=== PATIENT | male | born 1990 | race Caucasian/White ===

== ENCOUNTER 2017-08-29 04:31 | Emergency (ER) | payer OTHER ==
[~2017-08-29] VITALS: Ht 167.6 cm; Wt 84.0 kg
[2017-08-29 04:34] VITALS: BP 112/66; PULSE 108; RESP 20; TEMP 98; O2SAT 95
[2017-08-29] MEDS ORDERED: GABA300C5 PO (04:44)
[2017-08-29] MEDS ORDERED: [UNRECOGNIZED DRUG - CODE] PO (04:44)
[2017-08-29] MEDS ORDERED: BACL10TA PO (04:44)
[2017-08-29] MEDS ORDERED: SODIUM CHLOR 0.9% 1000 ML INJ 1,000 ML IV ONE (04:51)
--- NOTE | 2017-08-29 04:56 | PD ---
HPI Chief Complaint: Headache Time Seen by Provider: 04:51 Travel History International Travel<30 days: No Contact w/Intl Traveler<30days: No Traveled to known affect area: No History of Present Illness HPI 26-year-old male patient with history of migraine headaches, bulging disks in his neck, currently being evaluated by pain management, presents to the ER today because he has been having 1 month history of headaches which worsened tonight as he was being questioned by PD. He states that he is currently having a 10 out of 10 headache that started around 11 PM. He has been drinking tonight. He has been nauseous and throwing up and is having double vision which is not unusual for his headaches. He also complains of subjective fevers although this is not unusual for his headaches. Modifying Factors: None Associated Signs & Symptoms: Headache, double vision, nausea and vomiting Risk Factors: Headaches for the last month PFSH Past Medical History Medical other: Yes (back pain) Immunizations Current: No Tetanus Vaccination: < 5 Years Influenza Vaccination: No ?: Not Past Surgical History Surgical History: No Previous Surgery Social History Alcohol Use: Yes (weekly) Tobacco Use: Yes Allergies-Medications (Allergen,Severity, Reaction): Coded Allergies: Sulfa (Sulfonamide Antibiotics) (Verified Allergy, Severe, 08/29/17) buprenorphine (Verified Allergy, Severe, 08/29/17) Reported Meds & Prescriptions Reported Meds & Active Scripts Active Reported Nucynta (Tapentadol) 100 Mg Tab 200 Mg PO TID NEB PRN Baclofen 10 Mg Tab 10 Mg PO TID Gabapentin 300 Mg Cap 300 Mg PO TID Review of Systems Except as stated in HPI: all other systems reviewed are Neg Physical Exam Narrative GENERAL: Well-developed young white male patient currently in moderate distress. Awake and oriented 3. SKIN: Focused skin assessment warm/dry. HEAD: Atraumatic. Normocephalic. EYES: Pupils equal and round. No scleral icterus. No injection or drainage. ENT: No nasal bleeding or discharge. Mucous membranes pink and moist. NECK: Trachea midline. No JVD. Supple. CARDIOVASCULAR: Regular rate and rhythm. No murmur appreciated. RESPIRATORY: No accessory muscle use. Clear to auscultation. Breath sounds equal bilaterally. GASTROINTESTINAL: Abdomen soft, non-tender, nondistended. Hepatic and splenic margins not palpable. MUSCULOSKELETAL: No obvious deformities. No clubbing. No cyanosis. No edema. NEUROLOGICAL: Awake and alert. No obvious cranial nerve deficits. Motor grossly within normal limits. Normal speech. PSYCHIATRIC: Appropriate mood and affect; insight and judgment normal. Data Data Last Documented VS Vital Signs Date Time Temp Pulse Resp B/P (MAP) Pulse Ox O2 Delivery O2 Flow Rate FiO2 08/29/17 05:07 99 08/29/17 04:42 Room Air 08/29/17 04:34 98.0 108 20 112/66 (81) Orders Orders Complete Blood Count With Diff (08/29/17 04:51) Comprehensive Metabolic Panel (08/29/17 04:51) [place] Sedimentation Rate (08/29/17 04:51) C-Reactive Protein (Crp) (08/29/17 04:51) Ct Brain W/O Iv Contrast(Rout) (08/29/17 04:51) Ecg Monitoring (08/29/17 04:51) Iv Access Insert/Monitor (08/29/17 04:51) Oximetry (08/29/17 04:51) Sodium Chloride 0.9% Flush (Ns Flush) (08/29/17 05:00) Diphenhydramine Inj (Benadryl Inj) (08/29/17 05:00) Metoclopramide Inj (Reglan Inj) (08/29/17 05:00) Sodium Chlor 0.9% 1000 Ml Inj (Ns 1000 M (08/29/17 04:51) Vjdl-Gnpjw-Unom 325-50-40 Mg (Fioricet 3 (08/29/17 05:00) Urinalysis - C+S If Indicated (08/29/17 04:58) Drug Screen, Random Urine (08/29/17 04:58) Alcohol (Ethanol) (08/29/17 04:51) Ed Discharge Order (08/29/17 05:50) Labs Laboratory Tests Test 08/29/17 05:03 Urine Color STRAW Urine Turbidity CLEAR Urine pH 6.0 Urine Specific [place] 1.006 Urine Protein NEG mg/dL Urine Glucose (UA) NEG mg/dL Urine Ketones NEG mg/dL Urine Occult Blood NEG Urine Nitrite NEG Urine Bilirubin NEG Urine Leukocyte Esterase NEG Urine RBC 0-2 /hpf Urine WBC 0-2 /hpf Urine Squamous Epithelial Cells 0-5 /hpf Urine Bacteria NONE /hpf Microscopic Urinalysis Comment CULT NOT INDICATED Urine Opiates Screen NEG Urine Barbiturates Screen NEG Urine Amphetamines Screen NEG Urine Benzodiazepines Screen NEG Urine Cocaine Screen NEG Urine Cannabinoids Screen NEG MDM Medical Decision Making Medical Screen Exam Complete: Yes Emergency Medical Condition: Yes Medical Record Reviewed: Yes Interpretation(s) Laboratory Tests Test 08/29/17 05:03 Last [address] 08/29/17 0451 Signed Impressions: Service Date/Time: Tuesday, August 29, 2017 05:06 - CONCLUSION: Negative examination. Henry Hussein MD Differential Diagnosis Headache: Migraine headache versus malingering versus dehydration versus metabolic issues Narrative Course CT the brain did not show any signs of acute intracranial processes. UA was negative for any urine toxicology screen was unremarkable. Patient was given IV fluids, Reglan, and Fioricet in the ER. Vital signs are stable. At this point, I have discussed the findings with the patient and I wanted to do blood work but the patient is refusing blood work. He states he already knows was going on, has had extensive workup including MRIs for this issue, has a neurologist who he had seen for this issue, is currently seeing pain management. He is refusing to get blood work done. At this point, I have told him that I would be unable to diagnose him any further, cannot rule out any underlying metabolic issues, infections, or other acute processes. Patient states understanding, states that this is the same thing he has had and is currently being worked up on. My plan at this point would be to release him with follow-up to his physicians. Return for any worsening in symptoms as necessary. Diagnosis Primary Impression: Headache Disposition: 01 DISCHARGE HOME Condition: Stable Dereje Ortega MD Aug 29, 2017 04:56
[2017-08-29] MEDS ORDERED: SODIUM CHLORIDE 0.9% FLUSH 10 ML FLUSH IVF PRN (05:00)
[2017-08-29] MEDS ORDERED: ACETAMIN 325 MG/BUTALBITAL 50 MG/CAFFEINE 40 MG TAB PO ONE (05:00)
[2017-08-29] MEDS ORDERED: METOCLOPRAMIDE HCL 10 MG/2 ML VIAL IVP ONE (05:00)
[2017-08-29] MEDS ORDERED: diphenhydrAMINE HCL 50 MG/ML VIAL IVP ONE (05:00)
[2017-08-29 05:07] VITALS: O2SAT 99
[2017-08-29 05:12] LABS: BILIRUBIN, URINE NEG (NEG); BLOOD, URINE NEG (NEG); GLUCOSE,URINE NEG (NEG); KETONE, URINE NEG (NEG); NITRITE,URINE NEG (NEG); URINE LEUKOCYTE ESTERASE NEG (NEG)
[2017-08-29 05:18] LABS: URINE COLOR STRAW (YELLW/STRAW)
[2017-08-29 05:19] LABS: RBC, URINE 0-2 /hpf (0-3); SQUAMOUS EPITHELIAL CELL URINE 0-5 /hpf (0-5); WBC, URINE 0-2 /hpf (0-5)
--- NOTE | 2017-08-29 05:23 | RADRPT ---
EXAM DATE/TIME: 08/29/2017 05:06 [facility] COMPARISON: No previous studies available for comparison. INDICATIONS : Headache X 4 hours RADIATION DOSE: 60.16 CTDIvol (mGy) ; Patient motion MEDICAL HISTORY : None SURGICAL HISTORY : None. ENCOUNTER: Initial ACUITY: 1 day PAIN SCALE: 8/10 LOCATION: cranial TECHNIQUE: Multiple contiguous axial images were obtained of the head. Using automated exposure control and adj ustment of the mA and/or kV according to patient size, radiation dose was kept as low as reasonably a chievable to obtain optimal diagnostic quality images. DICOM format image data is available electro nically for review and comparison. FINDINGS: There is motion blurring. The patient reports the patient was uncooperative and would not hold still for the exam. CEREBRUM: The ventricles are normal for age. No evidence of midline shift, mass lesion, hemorrhage or acute in farction. No extra-axial fluid collections are seen. POSTERIOR FOSSA: The cerebellum and brainstem are intact. The 4th ventricle is midline. The cerebellopontine angle i s unremarkable. EXTRACRANIAL: The visualized portion of the orbits is intact. SKULL: The calvaria is intact. No evidence of skull fracture. CONCLUSION: Negative examination. Henry Hussein MD on August 29, 2017 at 5:20 Board Certified Radiologist. This report was verified electronically.
[2017-08-29 06:32] VITALS: BP 115/75; TEMP 98.2
== END 2017-08-29 06:34 | disposition home or self-care (01) ==
LOC: PHED 04:31
DX: R51 Headache (principal); G89.29 Other chronic pain; Z72.0 Tobacco use
CPT/HCPCS: 70450; 80307; 81001; 96361; 96374; 96375; 99285; J1200; J2765; J7030